=== PATIENT | female | born 1985 | race Caucasian/White ===

== ENCOUNTER → 2020-07-20 10:36 | Outpatient (BNVA) | payer BC, MEDICAID, SELFPAY | PROVIDERS: Family Provider Nurse Practitioner Family; PCP Nurse Practitioner Family; Visit Provider Nurse Practitioner Family | DX: Z20.828 Contact with and (suspected) exposure to other viral communicable diseases (principal) | CPT/HCPCS: 87635 ==

== ENCOUNTER → 2020-10-05 13:45 | Outpatient (BNVA) | payer BC, MEDICAID, SELFPAY | PROVIDERS: Family Provider Nurse Practitioner Family; PCP Nurse Practitioner Family; Visit Provider Nurse Practitioner Family | DX: F32.9 Major depressive disorder, single episode, unspecified (principal); F41.9 Anxiety disorder, unspecified; Z79.899 Other long term (current) drug therapy; E55.9 Vitamin D deficiency, unspecified; Z13.6 Encounter for screening for cardiovascular disorders | CPT/HCPCS: 80053; 80061; 81003; 82306; 83036; 84443; 85025 ==

== ENCOUNTER → 2020-12-29 12:01 | Outpatient (BNVA) | payer BC, SELFPAY | PROVIDERS: Family Provider Nurse Practitioner Family; PCP Nurse Practitioner Family; Visit Provider Nurse Practitioner Family | DX: J22 Unspecified acute lower respiratory infection (principal); R06.02 Shortness of breath; K21.9 Gastro-esophageal reflux disease without esophagitis; R10.9 Unspecified abdominal pain; R31.9 Hematuria, unspecified; E66.09 Other obesity due to excess calories | CPT/HCPCS: 71046; 74018; 81003 ==

== ENCOUNTER → 2022-04-07 11:27 | Outpatient (BNVA) | payer BC, MEDICAID, SELFPAY | PROVIDERS: Family Provider Nurse Practitioner Family; PCP Nurse Practitioner Family; Visit Provider Nurse Practitioner | DX: R50.9 Fever, unspecified (principal) | CPT/HCPCS: 87426 ==

== ENCOUNTER → 2022-04-08 08:38 | Outpatient (BNVA) | payer BC, MEDICAID, SELFPAY | PROVIDERS: Family Provider Nurse Practitioner Family; PCP Nurse Practitioner Family; Visit Provider Nurse Practitioner | DX: J22 Unspecified acute lower respiratory infection (principal) | CPT/HCPCS: 87426 ==

== ENCOUNTER → 2022-05-18 13:16 | Outpatient (BNVA) | payer BC, MEDICAID, SELFPAY | PROVIDERS: Family Provider Nurse Practitioner Family; Visit Provider Nurse Practitioner | DX: R53.83 Other fatigue (principal); R68.89 Other general symptoms and signs | CPT/HCPCS: 80053; 84443; 85025 ==

== ENCOUNTER → 2022-10-05 08:38 | Outpatient (BNVA) | payer BC, MEDICAID, SELFPAY | PROVIDERS: Family Provider Nurse Practitioner Family; Visit Provider Nurse Practitioner | DX: M79.671 Pain in right foot (principal); M72.2 Plantar fascial fibromatosis | CPT/HCPCS: 73630 ==

== ENCOUNTER → 2023-01-04 08:33 | Outpatient (BNVA) | payer BC, MEDICAID, SELFPAY | PROVIDERS: Family Provider Nurse Practitioner Family; PCP Nurse Practitioner; Visit Provider Nurse Practitioner | DX: M76.51 Patellar tendinitis, right knee (principal) | CPT/HCPCS: 73562 ==

== ENCOUNTER → 2023-06-21 15:54 | Outpatient (BNVA) | payer SELFPAY | PROVIDERS: Family Provider Nurse Practitioner Family; PCP Nurse Practitioner; Visit Provider Nurse Practitioner Family | DX: M77.50 Other enthesopathy of unspecified foot and ankle (principal); I10 Essential (primary) hypertension; Z13.6 Encounter for screening for cardiovascular disorders; Z79.899 Other long term (current) drug therapy; E55.9 Vitamin D deficiency, unspecified; M79.672 Pain in left foot | CPT/HCPCS: 73630 ==

== ENCOUNTER → 2023-11-30 15:07 | Outpatient (BNVA) | payer SELFPAY | PROVIDERS: Family Provider Nurse Practitioner Family; PCP Nurse Practitioner; Visit Provider Nurse Practitioner Family | DX: I10 Essential (primary) hypertension (principal); Z13.6 Encounter for screening for cardiovascular disorders; Z79.899 Other long term (current) drug therapy; E55.9 Vitamin D deficiency, unspecified; M54.14 Radiculopathy, thoracic region; M25.50 Pain in unspecified joint; N64.4 Mastodynia; M79.621 Pain in right upper arm | CPT/HCPCS: 80053; 80061; 81003; 82306; 83036; 84443; 84550; 85025 ==

== ENCOUNTER → 2024-04-29 08:11 | Outpatient (BNVA) | payer MEDICAID, SELFPAY | PROVIDERS: Family Provider Nurse Practitioner Family; Visit Provider Nurse Practitioner Family | DX: Z79.899 Other long term (current) drug therapy (principal); F41.9 Anxiety disorder, unspecified; F32.9 Major depressive disorder, single episode, unspecified; I10 Essential (primary) hypertension; E55.9 Vitamin D deficiency, unspecified; R53.83 Other fatigue | CPT/HCPCS: 80053; 80061; 81003; 82306; 82607; 82728; 83540; 84439; 84443; 85025; 85651; 86140 ==

== ENCOUNTER → 2024-05-08 08:55 | Outpatient (BNVA) | payer MEDICAID, SELFPAY | PROVIDERS: Family Provider Nurse Practitioner Family; PCP Nurse Practitioner Family; Visit Provider Nurse Practitioner Family | DX: D72.829 Elevated white blood cell count, unspecified (principal); R53.82 Chronic fatigue, unspecified | CPT/HCPCS: 86038; 86200; 86431 ==

== ENCOUNTER → 2024-05-28 13:56 | Outpatient (BNVA) | payer OTHER, MEDICAID, SELFPAY | PROVIDERS: Family Provider Nurse Practitioner Family; PCP Nurse Practitioner Family; Referring Provider Nurse Practitioner Family; Visit Provider Obstetrics & Gynecology | DX: Z12.4 Encounter for screening for malignant neoplasm of cervix (principal) | CPT/HCPCS: 87624 ==

== ENCOUNTER → 2024-06-05 08:39 | Outpatient (BNVA) | payer OTHER, MEDICAID, SELFPAY | PROVIDERS: Family Provider Nurse Practitioner Family; PCP Nurse Practitioner Family; Visit Provider Nurse Practitioner Family | DX: D51.9 Vitamin B12 deficiency anemia, unspecified (principal) | CPT/HCPCS: 82607 ==

== ENCOUNTER → 2024-06-27 12:13 | Outpatient (BNVA) | payer OTHER, MEDICAID, SELFPAY | PROVIDERS: Family Provider Nurse Practitioner Family; PCP Nurse Practitioner Family; Visit Provider Obstetrics & Gynecology | DX: N92.6 Irregular menstruation, unspecified (principal); N85.8 Other specified noninflammatory disorders of uterus | CPT/HCPCS: 76830 ==

== ENCOUNTER → 2024-07-17 15:05 | Outpatient (BNVA) | payer OTHER, MEDICAID, SELFPAY | PROVIDERS: Family Provider Nurse Practitioner Family; PCP Nurse Practitioner Family; Visit Provider Nurse Practitioner Family | DX: D51.9 Vitamin B12 deficiency anemia, unspecified (principal) | CPT/HCPCS: 82607; 82746 ==

== ENCOUNTER 2024-08-01 05:33 | Day surgery (SDC) | payer MEDICAID, SELFPAY ==
--- NOTE | 2024-07-31 23:22 | W.PM.OPSFHP ---
Same Day Surgery H&P Indication for Procedure/HPI DATE OF PROCEDURE: August 01, 2024 CHIEF COMPLAINT/INDICATIONFOR SURGICAL PROCEDURE: abnormal uterine bleeding PREOP DIAGNOSIS: abnormal uterine bleeding PLANNED PROCEDURE: Operation Date: 08/01/24 07:00 Proposed Procedures p Hysteroscopy w/ Endometrial Sampling 59692, 56609, N93.9(Not Applicable) - Jhonny Delgado MD s possible endometrial polypectomy(Not Applicable) - Jhonny Delgado MD s Placement of Intrauterine Device(Not Applicable) - Jhonny Delgado MD 38 y.o. h/o BTL in 2019 h/o endometrial ablation 2019 has been having irregular, heavy bleeding Medications/Allergies* Allergies/Adverse Reactions Allergy/AdvReac Type Severity Reaction Status Date / Time doxycycline Allergy Intermediate hives Verified 07/31/24 09:14 Influenza Virus Vaccines Allergy ALGY-Hives Verified 07/31/24 09:14 Pertinent History/Comorbid Conditions* Medical History (Updated 07/23/24 @ 07:58 by FELIX Tena) Folic acid deficiency Otitis media Vitamin B12 deficiency anemia Irregular menses Fatigue Breast tenderness in female Tenderness of right axilla Breast tenderness Thoracic radiculopathy Acute bacterial sinusitis Lower respiratory infection Encounter for laboratory test Vitamin D deficiency Medication management Encounter for screening for cardiovascular disorders Tendonitis of foot Tobacco dependence due to cigarettes Cough Essential hypertension Obesity Poison ken Tachycardia Hematuria GERD (gastroesophageal reflux disease) Shortness of breath Anxiety and depression Headache Surgical History (Updated 12/05/19 @ 20:26 by FELIX Tena) Status post tubal ligation Family History (Updated 12/04/19 @ 13:33 by Flaca Bolanos LPN) CAD (coronary artery disease) Lung disease Father Social History Smoking and tobacco/nicotine status: current every day tobacco/nicotine user Alcohol intake: current Alcohol intake frequency: holidays/special occasions only Substance/Drug Use: never Pertinent Exam Findings alert, oriented x 3, clear to auscultation bilaterally and regular rate & rhythm Pertinent Data Pelvic sono 06-27-24 uterus 8.9 x 4.9 x 6.6 cm Endometrium 7.4 mm Normal ovaries Recommendations Surgery/Procedure today Coding Level of Care Code Acute Code for Chg Fwd Time Spent (min) 15
[2024-08-01] VITALS (8 sets, daily range): BP systolic 123–167; BP diastolic 73–99; PULSE 74–94; RESP 16–18; TEMP 36.2–36.8; O2SAT 94–100; BMI 36.9
[2024-08-01] MEDS: sodium chloride 0.9% 1,000 ML 30 ML IV (06:18)
[2024-08-01 06:23] LABS: OR HCG Qualitative Urine Negative (Negative)
--- NOTE | 2024-08-01 06:42 | W.PM.OPSUD ---
Surgery/Procedure H&P Update DATE OF PROCEDURE: August 01, 2024 DATE H&P PERFORMED: 07/31/24 H&P UPDATE INFORMATION: I have reviewed H&P completed within last 30 days, I have examined patient prior to procedure and No changes to prior documentation PREOP DIAGNOSIS: abnormal uterine bleeding PLANNED PROCEDURE: Operation Date: 08/01/24 07:00 Proposed Procedures p Hysteroscopy w/ Endometrial Sampling 29315, 19220, N93.9(Not Applicable) - Jhonny Delgado MD s possible endometrial polypectomy(Not Applicable) - Jhonny Delgado MD s Placement of Intrauterine Device(Not Applicable) - Jhonny Delgado MD
--- NOTE | 2024-08-01 06:51 | ANES.PREANE2 ---
Pre-Anesthetic Assessment Height/Weight: Height 1.75 m Weight 113.398 kg Temp Pulse Resp BP Pulse Ox O2 Del Method 98.2 F 94 18 167/95 100 Room Air 08/01/24 06:07 08/01/24 06:07 08/01/24 06:07 08/01/24 06:07 08/01/24 06:07 08/01/24 06:07 Preop Diagnosis: abnormal uterine bleeding Operation Date: 08/01/24 07:00 Proposed Procedures p Hysteroscopy w/ Endometrial Sampling 37903, 98550, N93.9(Not Applicable) - Jhonny Delgado MD s possible endometrial polypectomy(Not Applicable) - Jhonny Delgado MD s Placement of Intrauterine Device(Not Applicable) - Jhonny Delgado MD Familial anesthetic complications: None Was Beta Di taken within 24 hours: N/A Was Clonidine taken within 24 hours: N/A Last intake: Intake Last Liquid Date 07/31/24 Last Liquid Time 19:00 Last Solid Date 07/31/24 Last Solid Time 19:00 Social Tobacco and No alcohol Exam alert, oriented x 3, clear to auscultation bilaterally and regular rate & rhythm Airway Mallampati: Class I Dentition: other (missing) GI Gastroesophageal Reflux Disease Anesthetic Plan ASA status: 2 Anesthesia: General Risk of > 500 ml blood loss (7ml/kg in children): No Medications/Allergies Home Medications Medication Instructions Recorded Confirmed Last Taken Type ibuprofen 800 mg tablet 800 mg PO Q8H PRN pain 30 days #60 11/30/23 08/01/24 07/31/24 Rx tabs cyanocobalamin (vitamin B-12) 1,000 mcg IM .weekly 4 weeks #4 mL 07/23/24 07/31/24 07/24/24 Rx 1,000 mcg/mL injection solution Allergies Allergy/AdvReac Type Severity Reaction Status Date / Time doxycycline Allergy Intermediate hives Verified 07/31/24 09:14 Influenza Virus Vaccines Allergy ALGY-Hives Verified 07/31/24 09:14 Current Medications Generic Name Dose Route Start Last Admin Trade Name Freq PRN Reason Stop Dose Admin Sodium Chloride 1,000 mls @ 30 mls/hr 08/01/24 06:00 08/01/24 06:18 Sodium Chloride 0.9% IV 08/02/24 05:59 30 mls/hr .Q24H SAMUEL Administration PFSH Anesthesia Medical History (Updated 07/23/24 @ 07:58 by FELIX Tena) Folic acid deficiency Otitis media Vitamin B12 deficiency anemia Irregular menses Fatigue Breast tenderness in female Tenderness of right axilla Breast tenderness Thoracic radiculopathy Acute bacterial sinusitis Lower respiratory infection Encounter for laboratory test Vitamin D deficiency Medication management Encounter for screening for cardiovascular disorders Tendonitis of foot Tobacco dependence due to cigarettes Cough Essential hypertension Obesity Poison ken Tachycardia Hematuria GERD (gastroesophageal reflux disease) Shortness of breath Anxiety and depression Headache Surgical History Status post tubal ligation Family History Father Lung disease Other CAD (coronary artery disease) Social History Smoking and tobacco/nicotine status: current every day tobacco/nicotine user Alcohol intake: current Alcohol intake frequency: holidays/special occasions only Substance/Drug Use: never Female Reproductive History Date of last menstrual period: 07/31/24 Data Anesthesia Cardiac Studies: No Data to Display
--- NOTE | 2024-08-01 07:43 | PC.NURSE ---
Attempted IUD placement, patient's cavity was too small for IUD to be placed. One IUD from Dr. Delgado's clinic wasted.
--- NOTE | 2024-08-01 08:30 | PM.OP ---
Operative Report Date of procedure: August 01, 2024 Pre-op diagnosis: history of endometrial ablation abnormal uterine bleeding Post-op diagnosis: same Post-op findings: Constricted and tubular endometrial cavity No polyps / fibroids Minimal endometrial tissue Unable to place mirena intrauterine device due to extremely constricted and tubular endometrial cavity Procedure done: hysteroscopy Curettage of uterus Implants: none Specimens removed/disposition: endometrial curettings Surgeon: Jhonny Delgado MD Anesthesia: MAC Estimated blood loss (mL): 0 Complications: none Findings: Constricted and tubular endometrial cavity No polyps / fibroids Minimal endometrial tissue Unable to place mirena intrauterine device due to extremely constricted and tubular endometrial cavity Condition: stable Disposition: PACU Brief History: 38 y.o. with past history of endometrial ablation has been having irregular bleeding Procedure: Informed consent signed. Patient was taken to the operating room. Anesthesia was induced. Patient was placed in dorsolithotomy position, prepped and draped for hysteroscopy. A bivalve speculum was placed in the vagina. The anterior lip of the cervix was grasped with a sharp-toothed tenaculum. The cervix was serially dilated with Hegar dilators. The endometrial cavity was sounded to less than 4 cm. A hysteroscope was placed into the endometrial cavity. The endometrial cavity was seen to be severely constricted and tubular in shape due to previous history of endometrial ablation. There were no polyps or fibroids. There was a minimal amount of endometrial tissue. The hysteroscope was then removed. Endometrial curettage was done with a sharp curette. Endometrial tissue was sent to pathology. An intrauterine device could not be inserted due to the small size of the endometrial cavity. The sharp-toothed tenaculum was removed. There was no bleeding from the endometrial cavity or cervix. The patient was then placed supine and awakened and taken to the PACU. Postop condition: stable EBL: none Sponge and instruments counts were normal x 2 Complications: none
--- NOTE | 2024-08-01 09:10 | ANE.PACU2 ---
Inpatient post-anesthesia follow up: Airway intact: Yes Vital signs: Temperature 97.2 F Pulse Rate 74 Respiratory Rate 17 Blood Pressure 155/99 Pulse Oximetry 98 Oxygen Delivery Me thod Room Air Oxygen Flow Rate Fraction of Inspir ed Oxygen Hydration adequate: Yes Nausea and vomiting: No Pain level: 1 Mental status: Baseline
== END 2024-08-01 09:13 | disposition home or self-care (01) ==
PROVIDERS: Anesthesiology; PCP Nurse Practitioner Family; Visit Provider Obstetrics & Gynecology
PROC: 0UJD8ZZ Inspection of Uterus and Cervix, Via Natural or Artificial Opening Endoscopic (ICD-10-PCS; CPT 58555; principal; 2024-08-01 07:00)
DX: N93.9 Abnormal uterine and vaginal bleeding, unspecified (principal); I10 Essential (primary) hypertension; E66.9 Obesity, unspecified; Z68.36 Body mass index [BMI] 36.0-36.9, adult; F17.200 Nicotine dependence, unspecified, uncomplicated
CPT/HCPCS: 58558; 81025; 88305; J0131; J1100; J1885; J2250; J2405; J2704; J3010; J7030

== ENCOUNTER → 2024-09-09 14:52 | Outpatient (BNVA) | payer MEDICAID, SELFPAY | PROVIDERS: PCP Nurse Practitioner Family; Visit Provider Nurse Practitioner Family | DX: D51.9 Vitamin B12 deficiency anemia, unspecified (principal) | CPT/HCPCS: 82607 ==

== ENCOUNTER → 2024-11-05 08:31 | Outpatient (BNVA) | payer MEDICAID, SELFPAY | PROVIDERS: PCP Nurse Practitioner Family; Visit Provider Nurse Practitioner Family | DX: R10.9 Unspecified abdominal pain (principal) | CPT/HCPCS: 81003 ==

== ENCOUNTER → 2024-11-28 10:37 | Outpatient (BNVA) | payer MEDICAID, SELFPAY | PROVIDERS: PCP Nurse Practitioner Family; Visit Provider Nurse Practitioner Family | DX: D51.9 Vitamin B12 deficiency anemia, unspecified (principal) | CPT/HCPCS: 82607 ==

== ENCOUNTER → 2025-01-27 08:29 | Outpatient (BNVA) | payer MEDICAID, SELFPAY | PROVIDERS: PCP Nurse Practitioner Family; Visit Provider Nurse Practitioner Family | DX: E53.8 Deficiency of other specified B group vitamins (principal); I10 Essential (primary) hypertension; E66.09 Other obesity due to excess calories; Z68.36 Body mass index [BMI] 36.0-36.9, adult; E55.9 Vitamin D deficiency, unspecified; K21.9 Gastro-esophageal reflux disease without esophagitis; R53.83 Other fatigue; Z79.899 Other long term (current) drug therapy | CPT/HCPCS: 80053; 80061; 81003; 82306; 82607; 82746; 83036; 83921; 84443; 85025 ==

== ENCOUNTER → 2025-06-06 10:51 | Outpatient (BNVA) | payer MEDICAID, SELFPAY | PROVIDERS: PCP Nurse Practitioner Family; Visit Provider Nurse Practitioner Family | DX: D51.9 Vitamin B12 deficiency anemia, unspecified (principal) | CPT/HCPCS: 82607 ==